=== PATIENT | female | born 1975 | race Caucasian/White ===

== ENCOUNTER 2020-01-13 10:21 | Emergency (ER) | payer BC, SELFPAY ==
[2020-01-13 10:26] VITALS: BP 126/85; PULSE 66; RESP 16; TEMP 36.6; O2SAT 97
--- NOTE | 2020-01-13 11:08 | ED.GENADULT ---
HPI - General Adult General Chief complaint: Upper Respiratory Infection Stated complaint: chest congestion/dry cough Time Seen by Provider: 01/13/20 11:08 Source: patient and RN notes reviewed Mode of arrival: ambulatory Limitations: no limitations History of Present Illness HPI narrative: 44-year-old female presents with complaints of upper respiratory infection, facial congestion and cough for the past 2 days. Motrin (last on 01/12/20) with some relief. No facial swelling. Dry cough. Some chest congestion. No change in cough with lying down. Nasal congestion and rhinorrhea. Low grade fever, highest 99.9F, orally. No chest pain or shortness of breath. No exacerbating factors. Denies chills. Denies nausea, vomiting, and abdominal pain. Tolerating po intake well. Remains active. Jaja denies being , LMP 2 weeks ago. Some parts of this dictation were generated by voice recognition software and may contain typographical and/or grammatical inaccuracies. Related Data Allergies Allergy/AdvReac Type Severity Reaction Status Date / Time clarithromycin Allergy Mild Nausea Verified 09/16/19 10:14 adhesive Allergy Unknown RASH Verified 09/16/19 10:14 Sulfa (Sulfonamide Allergy Unknown Hives Verified 09/16/19 10:14 Antibiotics) Review of Systems Review of Systems: Narrative: CONSTITUTIONAL: Complains of low-grade fever. Denies chills, sweats. EYES: Denies visual changes, redness, discharge. ENT: Complains of rhinorrhea, congestion. Denies sore throat. otalgia. CARDIOVASCULAR: Denies chest pain, palpitations, edema. RESPIRATORY: Denies dyspnea, wheezing. Complains of dry cough. GASTROINTESTINAL: Denies abdominal pain, nausea, vomiting, diarrhea. GENITOURINARY: Denies dysuria, hematuria, abnormal discharge. SKIN: Denies rash or itching. MUSCULOSKELETAL: Denies acute back pain, joint pain, or myalgia. NEUROLOGIC: Denies numbness or focal weakness. PSYCHIATRIC: Denies anxiety or depression. All systems reviewed & are unremarkable except as noted in HPI and below. [facility] Past Medical History Medical History (Updated 01/14/20 @ 00:00 by Faotu Kumar) MVP (mitral valve prolapse) Obesity, unspecified (09/29/15) Surgical History Surgical History (Updated 01/13/20 @ 11:21 by JAVID Downs) No significant past surgical history Family History Family History Mother Patient's mother is in good health Hypertension Father Patient's father is in good health Family history of cardiovascular disease Family history of malignant neoplasm of male breast Hypertension Family history of malignant neoplasm of breast in first degree relative Grandparent Acute myocardial infarction, Onset Age: 94 Family history of dementia Social History Social History (Updated 01/13/20 @ 11:21 by JAVID Downs) Smoking status: Never smoker Second hand tobacco smoke exposure: No Alcohol intake: current Substance use: never Living arrangements: with family Occupation/Education: occupation Gender identity (if verbalized by the patient): Female Comments At time of signature, agree with nurse past medical, surgical, social, and family history. There is no relevant family history pertinent to the presenting complaint. Exam Narrative: Exam Narrative: GENERAL: This is a well-nourished, well-developed patient, in no apparent distress. Talks in full sentences and ambulates with steady gait without dyspnea. HEAD: normocephalic, atraumatic. EYES: PERRL. Sclera clear/white. Vision is grossly intact. EARS: External ears normal, auditory canals clear and without drainage, TMs normal without perforation. Hearing grossly intact. NOSE: External nose normal with no obvious nasal discharge, nares with mild redness and enlarged turbinates, clear rhinorrhea. THROAT: Mucous membranes moist, posterior pharynx with PND, mild erythema, no exudate, and
== END 2020-01-13 11:24 | disposition home or self-care (01) ==
PROVIDERS: Emergency Provider Nurse Practitioner Family; PCP Internal Medicine
DX: J00 Acute nasopharyngitis [common cold] (principal); J01.90 Acute sinusitis, unspecified; I34.1 Nonrheumatic mitral (valve) prolapse; E66.9 Obesity, unspecified
CPT/HCPCS: 99213; G0463

== ENCOUNTER 2021-09-26 10:24 | Emergency (ER) | payer BC, SELFPAY ==
[2021-09-26 10:29] VITALS: BP 129/94; PULSE 82; RESP 16; TEMP 36.7; O2SAT 100
--- NOTE | 2021-09-26 10:29 | ED.SKABFB ---
HPI - Skin/Abscess/Foreign Bdy General Chief complaint: Skin/Abscess/Foreign Body Stated complaint: Rash Time Seen by Provider: 09/26/21 10:29 Source: patient and RN notes reviewed Mode of arrival: ambulatory Limitations: no limitations History of Present Illness HPI narrative: Chris is a 45-year-old female patient who ambulated into the [facility]. Patient states states she was evaluated by her primary care physician on Tuesday and was treated with valacyclovir for shingles. Patient states the rash has increased. She has a rash underneath bilateral breasts and upper middle chest and upper back on both sides. Patient denies any itching. Patient denies any pain MD complaint: rash Related Data Allergies Allergy/AdvReac Type Severity Reaction Status Date / Time Sulfa (Sulfonamide Allergy Intermediate Hives Verified 09/25/21 13:20 Antibiotics) clarithromycin AdvReac Mild Nausea Verified 09/26/21 10:29 Review of Systems Review of Systems: CONSTITUTIONAL: Denies body aches, fever, chills, or sweats. EYES: Denies visual changes, redness, or discharge. ENT: Denies rhinorrhea, congestion, sore throat, or otalgia. CARDIOVASCULAR: Denies chest pain, palpitations, or edema. RESPIRATORY: Denies cough or dyspnea. GASTROINTESTINAL: Denies abdominal pain, nausea, vomiting, or diarrhea. GENITOURINARY: Denies dysuria or hematuria. SKIN: Denies , itching, or wounds. rash under bilateral breasts, mid chest and both sides of back MUSCULOSKELETAL: Denies back pain, joint pain, or myalgia. NEUROLOGIC: Denies headache, numbness, tingling, or weakness. PSYCH: Denies depression or anxiety. All systems reviewed & are unremarkable except as noted in HPI and below [facility] Past Medical History Medical History (Updated 09/26/21 @ 10:46 by EUN Neal) MVP (mitral valve prolapse) Obesity, unspecified (09/29/15) Surgical History Surgical History No significant past surgical history Family History Family History Mother Patient's mother is in good health Hypertension Father Patient's father is in good health Family history of cardiovascular disease Family history of malignant neoplasm of male breast Hypertension Family history of malignant neoplasm of breast in first degree relative Grandparent Acute myocardial infarction, Onset Age: 94 Family history of dementia Social History Social History Second hand tobacco smoke exposure: No Alcohol intake: current Substance use: never Gender identity (if verbalized by the patient): Female Comments At time of signature, I have reviewed and agree with nursing past medical, surgical, social and family history unless otherwise noted. Please see nursing chart for further information. There is no relevant family history pertinent to the presenting complaint Exam Narrative: GENERAL: Well-appearing, well-nourished, and in no acute distress. HEAD: Normocephalic, atraumatic. EYES: EOMI. No redness or drainage. Conjunctivae normal. ENT: Mucous membranes pink and moist. Nares clear. No rhinorrhea. TMs normal bilaterally. Throat normal. Uvula midline. NECK: Normal AROM. Supple. No lymphadenopathy. CHEST: No respiratory distress. Clear to auscultation. HEART: Regular rate and rhythm. No murmur appreciated. Normal peripheral pulses. ABDOMEN: Soft, nontender, nondistended, normal active bowel sounds. MUSCULOSKELETAL: No bony tenderness. EXTREMITIES: Normal range of motion. No edema. SKIN: Warm, dry, . Capillary refill normal. Normal skin turgor. Maculopapular rash under bilateral breast, mid chest to the neck, and scattered throughout both sides of her back NEURO: No focal deficits. Alert and oriented x3. Gait steady. PSYCH: Normal affect. No signs of depression or anxiety. Course Vital Signs Vital signs:
== END 2021-09-26 10:51 | disposition home or self-care (01) ==
PROVIDERS: Emergency Provider Nurse Practitioner Family; PCP Internal Medicine
DX: L25.9 Unspecified contact dermatitis, unspecified cause (principal); I34.1 Nonrheumatic mitral (valve) prolapse; E66.9 Obesity, unspecified; Z68.37 Body mass index [BMI] 37.0-37.9, adult
CPT/HCPCS: 99213; G0463

== ENCOUNTER 2023-01-10 00:17 | Day surgery (SDC) | payer BC, SELFPAY ==
[2022-12-24 15:01] VITALS: BMI 35.5
--- NOTE | 2023-01-07 16:12 | PM.HPGS ---
History of Present Illness History of Present Illness Consent: Risks, benefits, and alternatives have been discussed and questions answered. Patient agrees to proceed with procedure. Chief complaint: family hx colon ca Narrative: Jaja Jackson is a 47 year old female referred for colon cancer screening. Her grandfather had colon cancer. Review of Systems Review of Systems: All systems reviewed & are unremarkable except as noted in HPI and below [facility] Past Medical History Medical History MVP (mitral valve prolapse) Obesity, unspecified (09/29/15) Surgical History Surgical History No significant past surgical history Family History Family History Mother Patient's mother is in good health Hypertension Father Patient's father is in good health Family history of cardiovascular disease Family history of malignant neoplasm of male breast Hypertension Family history of malignant neoplasm of breast in first degree relative Grandparent Acute myocardial infarction, Onset Age: 94 Family history of dementia Social History Social History Smoking status: Never smoker Second hand tobacco smoke exposure: No Alcohol intake: current Drinks per week: 1 Substance use: never Living arrangements: with family Occupation/Education: occupation Gender identity (if verbalized by the patient): Female Spiritual care concerns: No Meds Home Medications and Allergies Home Medications Medication Instructions Recorded Confirmed Type No Home Medications 12/24/22 12/24/22 History Allergies Allergy/AdvReac Type Severity Reaction Status Date / Time Sulfa (Sulfonamide Allergy Intermediate Hives Verified 01/10/23 06:54 Antibiotics) clarithromycin AdvReac Mild Nausea Verified 01/10/23 06:54 Exam Const: General: alert Orientation/consciousness: patient oriented x3 Resp: Auscultation: clear to auscultation bilaterally Cardio: Rhythm: regular rhythm GI: GI Palp: Yes Soft to palpation and No Tenderness to palpation present (GI) Neuro: General: patient oriented x3 Assessment and Plan Assessment and plan (1) Colon cancer screening: Code(s): Z12.11 - Encounter for screening for malignant neoplasm of colon Status: Acute
[2023-01-10 06:55] VITALS: BP 126/75; PULSE 68; RESP 18; TEMP 36.8; O2SAT 100
[2023-01-10] MEDS: LACTATED RINGERS 1,000 ML 150 ML IV CONT (07:05)
--- NOTE | 2023-01-10 07:43 | WPDANESEPPF ---
Anes - Initial Pre Proc Eval Procedure: Operation Date: 01/10/23 08:00 Proposed Procedures p Colonoscopy - Godfrey Hernandez MD Date/Time: 01/10/23 07:43 Surgeon: Godfrey Hernandez MD Pre Op Diagnosis: family hx colon ca Patient Data Age: 47 Gender: F Height: 1.7 m Weight: 104.8 kg Last Vital Signs Temp 36.8 C 01/10/23 06:55 Pulse 68 01/10/23 06:55 Resp 18 01/10/23 06:55 BP 126/75 01/10/23 06:55 Pulse Ox 100 01/10/23 06:55 O2 Del Method Room Air 01/10/23 06:55 Allergies Allergy/AdvReac Type Severity Reaction Status Date / Time Sulfa (Sulfonamide Allergy Intermediate Hives Verified 01/10/23 06:54 Antibiotics) clarithromycin AdvReac Mild Nausea Verified 01/10/23 06:54 Home Medications Medication Instructions Recorded Confirmed Type No Home Medications 12/24/22 12/24/22 History Patient hx anesthesia problems: none Family hx anesthesia problems: none Results Review: All pre-operative results and documents have been reviewed as part of the pre-operative evaluation. [facility] Past Medical History Medical History MVP (mitral valve prolapse) Obesity, unspecified (09/29/15) Surgical History Surgical History No significant past surgical history Family History Family History Mother Patient's mother is in good health Hypertension Father Patient's father is in good health Family history of cardiovascular disease Family history of malignant neoplasm of male breast Hypertension Family history of malignant neoplasm of breast in first degree relative Grandparent Acute myocardial infarction, Onset Age: 94 Family history of dementia Social History Social History Smoking status: Never smoker Second hand tobacco smoke exposure: No Alcohol intake: current Drinks per week: 1 Substance use: never Living arrangements: with family Occupation/Education: occupation Gender identity (if verbalized by the patient): Female Spiritual care concerns: No Anes - Eval Final PreProcedure Day of Procedure 01/10/23 07:43 Patient weight: obese Heart: regular rate and rhythm Lungs: clear to auscultation and normal air movement Airway: Mallampati scale class II Neurological: alert and oriented Last oral intake: >/= 8 hours ASA classification: II Emergent: no Anesthetic plan: proceed Anesthesia type and monitoring: general GIVS Results Review: All pre-operative results and documents have been reviewed as part of the pre-operative evaluation. Informed Consent: The patient's anesthetic plan and its attendant risks and benefits were discussed with the patient/family/POA. Questions were solicited and answers provided to the satisfaction of the patient/family/POA.
[2023-01-10] MEDS: SIMETHICONE ORAL SUSPENSION 20 MG/0.3 ML 30 ML BOTTLE 0.6 ML IRRIGATION (08:11)
[2023-01-10 08:20] VITALS: BP 112/70; PULSE 67; RESP 25; O2SAT 100
[2023-01-10 08:30] VITALS: BP 112/77; PULSE 63; RESP 18; O2SAT 100
[2023-01-10 08:40] VITALS: BP 113/85; PULSE 66; RESP 18; O2SAT 100
== END 2023-01-10 08:47 | disposition home or self-care (01) ==
PROVIDERS: PCP Family Medicine; Visit Provider Internal Medicine Gastroenterology
PROC: 0DJD8ZZ Inspection of Lower Intestinal Tract, Via Natural or Artificial Opening Endoscopic (ICD-10-PCS; CPT 45378; principal; 2023-01-10 08:00)
DX: Z12.11 Encounter for screening for malignant neoplasm of colon (principal); Z80.0 Family history of malignant neoplasm of digestive organs; E66.9 Obesity, unspecified; Z68.36 Body mass index [BMI] 36.0-36.9, adult
CPT/HCPCS: 45378; J2704; J7120

== ENCOUNTER 2023-06-20 08:50 | Outpatient (CLI) | payer BC, SELFPAY ==
[2023-06-20 13:08] LABS: Iron 46 ug/dL (37-170)
[2023-06-20 13:16] LABS: Alanine Aminotransferase 13 U/L (6-35); Alkaline Phosphatase 60 U/L (38-126); Anion Gap 5 mmol/L (8-16); Aspartate Amino Transferase 24 U/L (14-36); Bilirubin,Total 0.5 mg/dL (0.2-1.3); Blood Urea Nitrogen 14 mg/dL (7-17); Calcium 8.7 mg/dL (8.4-10.2); Carbon Dioxide 30 mmol/L (22-30); Chloride 104 mmol/L (98-107); Cholesterol 165 mg/dL (0-200); Estimated Glomerular Filt Rate > 60; Glucose 81 mg/dL (65-110); HDL Direct 42 mg/dL; Potassium 4.4 mmol/L (3.4-5.0); Sodium 139 mmol/L (137-145); Triglycerides 80 mg/dL (<150)
[2023-06-20 13:17] LABS: Percent Iron Saturation 11 % (20-50)
[2023-06-20 13:19] LABS: Basophils Absolute Auto 0.1 K/mm3 (0.0-0.1); Basophils Percent Auto 0.8 % (0.2-1.2); Eosinophils Absolute Auto 0.2 K/mm3 (0-0.3); Eosinophils Percent Auto 2.2 % (0-4.4); Hematocrit 40.2 % (37.0-47.0); Hemoglobin 12.3 g/dL (12.0-15.0); Immature Granulocyte Absolute 0.02 K/mm3 (0.00-0.031); Immature Granulocyte Percent A 0.3 % (0-0.5); Lymphocytes Absolute Auto 2.08 K/mm3 (0.9-3.2); Lymphocytes Percent Auto 28.4 % (18.3-44.2); Mean Corpuscular HGB Conc 30.6 g/dl (32-36); Mean Corpuscular Hemoglobin 27.3 pg (26-34); Mean Corpuscular Volume 89.1 fl (80-100); Mean Platelet Volume 12.1 fl (7.4-10.4); Monocytes Absolute Auto 0.4 K/mm3 (0.1-0.6); Monocytes Percent Auto 5.9 % (2.6-8.5); Neutrophils Absolute Auto 4.6 K/mm3 (1.3-6.7); Neutrophils Percent Auto 62.4 % (45.5-73.1); Platelet Count Result 220 k/mm3 (150-375); Red Blood Count 4.51 M/mm3 (4.2-5.4); Red Cell Distribution Width 15.1 % (11.5-14.5); White Blood Count 7.3 K/mm3 (4.5-10.0)
[2023-06-20 13:27] LABS: LDL Cholesterol Direct 101 mg/dL
[2023-06-20 13:45] LABS: Ferritin 6.34 ng/mL (6.24-137)
[2023-06-20 15:27] LABS: Folic Acid > 20.0 ng/mL (2.76->20)
[2023-06-20 19:45] LABS: Vitamin D 25 Hydroxy 19.1 ng/mL
== END 2023-06-20 08:51 | disposition home or self-care (01) ==
LOC: ANHGOSHLAB 08:52
PROVIDERS: PCP Family Medicine; Visit Provider Family Medicine
DX: Z00.00 Encounter for general adult medical examination without abnormal findings (principal); R53.83 Other fatigue; E55.9 Vitamin D deficiency, unspecified; D50.9 Iron deficiency anemia, unspecified; Z13.220 Encounter for screening for lipoid disorders; Z13.29 Encounter for screening for other suspected endocrine disorder; Z13.228 Encounter for screening for other metabolic disorders
CPT/HCPCS: 36415; 80053; 80061; 82306; 82607; 82728; 82746; 83540; 83550; 84443; 85025

== ENCOUNTER 2023-08-03 08:41 | Outpatient (CLI) | payer BC, SELFPAY ==
--- NOTE | 2023-08-09 20:44 | WPDHOMESLEEP ---
Sleep Study - Home Unattended Date of Study: 08/03/23 Ordering Provider: Moose Estrella DO Interpreting Provider: Caitlin Gonsalez DO Home Sleep Study Type: Apnea Link Air Height: 1.7 m Weight: 102.058 kg Body Mass Index: 35.2 Neck Circumference (inches): 14.5 Glidden: 3 Reason for Sleep Study Snoring Sleep History The patient is a 47-year-old female that had a sleep study ordered by her primary care physician for evaluation of sleep apnea. The patient denies awakening from sleep short of breath. She rarely awakens at night with heartburn, belching or cough. She occasionally snores and is occasionally loud enough others complain. She occasionally has trouble sleeping when she has a cold. She rarely wakes up gasping for air throughout the night. She occasionally has breathing problems at night observed by herself or others. She denies sweating excessively at night. She occasionally has heart palpitations or irregular heartbeats during the night. She rarely falls asleep during the day but never while driving. She denies sleep paralysis and cataplexy. She denies having trouble at school or work due to sleepiness. She occasionally experiences vivid dreamlike scenes upon awakening or falling asleep. She denies feeling afraid of going to sleep. She rarely has nightmares. She frequently remembers her dreams. She frequently has thoughts racing through her mind. She rarely feels sad or depressed. She occasionally has anxiety. She occasionally has muscular tension. She occasionally notices parts of her body jerk. She occasionally kicks during the night. She rarely has crawling and aching feelings in her legs but denies having leg pain during the night. She occasionally grinds her teeth during sleep but never awakens with morning jaw pain. She is rarely bothered by pain during the day and rarely awakened by pain during the night. She occasionally wakes up feeling stiff in the morning. She occasionally wakes up with sore or achy muscles. She occasionally wakes up with pain in the neck, spine or other joints. She goes to bed at 10:00 p.m. on weekdays and 11:00 p.m. on the weekends. It takes her 10 minutes to fall asleep. She wakes up 1-2 times throughout the night to urinate but the amount of time it takes to fall back asleep is variable. She wakes up at 6:00 a.m. on weekdays and at 7:30 a.m. on weekends. She typically gets 7 hours of sleep per night. She will stay in bed for 5 minutes after waking up in the morning. She currently lives with her . She denies consuming any caffeinated beverages within 2 hours of bedtime. She denies engaging in physical exercise before bedtime. She will occasionally read and watch television before falling asleep. She denies taking naps in the afternoon or the evening. She consumes 1 caffeinated beverage per day. She consumes 1 alcoholic beverage per week. She denies tobacco recreational drug use. [facility] Past Medical History Medical History (Updated 08/09/23 @ 21:03 by Caitlin Gonsalze DO) MVP (mitral valve prolapse) Obesity, unspecified (09/29/15) Surgical History Surgical History No significant past surgical history Family History Family History Mother Patient's mother is in good health Hypertension Father Patient's father is in good health Family history of cardiovascular disease Family history of malignant neoplasm of male breast Hypertension Family history of malignant neoplasm of breast in first degree relative Grandparent Acute myocardial infarction, Onset Age: 94 Family history of dementia Social History Social History Smoking status: Never smoker Second hand tobacco smoke exposure: No Alcohol intake: current Drinks per week: 1 Substance use: never Lack of Transpor
[2023-08-09 20:48] VITALS: BMI 35.2
== END 2023-08-04 15:57 | disposition home or self-care (01) ==
LOC: ANHCSM 08:44
PROVIDERS: PCP Family Medicine; Visit Provider Family Medicine
DX: G47.30 Sleep apnea, unspecified (principal); G47.10 Hypersomnia, unspecified; R53.83 Other fatigue; E66.9 Obesity, unspecified; Z68.35 Body mass index [BMI] 35.0-35.9, adult
CPT/HCPCS: 95806

== ENCOUNTER 2023-08-16 13:20 | Outpatient (CLI) | payer BC, SELFPAY ==
--- NOTE | 2023-08-16 12:37 | ECHO_ITS ---
Patient Info Name: Jaja Jackson Age: 47 years : 1975 Gender: Female Ht: 67 in Wt: 225 lbs BSA: 2.24 m2 HR: 62 bpm BP: 118 / 84 mmHg Technical Quality: Fair Exam Date: 08/16/2023 2:02 PM Exam Location: [facility] Pulmonary Patient Status: Outpatient Admit Date: 08/16/2023 Staff Ordering Physician: Lauro Miranda DO [employer]: Leigh Hernandez RDCS Attending Provider: Lauro Miranda DO Referring Physician: Ruben ALONSO; Exam Type: CA echo doppler color flow Study Info Indications I34.1 - Nonrheumatic mitral (valve) prolapse Complete two-dimensional, color flow and Doppler transthoracic echocardiogram is performed. Summary 1. Complete two-dimensional, color flow and Doppler transthoracic echocardiogram is performed. 2. Left ventricular chamber dimension is normal. 3. Left ventricular systolic function is normal, estimated at 60-65%. 4. The left ventricular diastolic function is normal. 5. E/e' 7 is not elevated. 6. Left atrial chamber dimension is mildly enlarged. 7. No pulmonary hypertension, estimated pulmonary arterial systolic pressure is 25 mmHg. Left Ventricle E/e' 7 is not elevated. Left ventricular chamber dimension is normal. Left ventricular systolic function is normal, estimated at 60-65%. The left ventricular diastolic function is normal. Right Ventricle Right ventricular chamber dimension is normal. Right ventricular systolic function is normal. Left Atria Left atrial chamber dimension is mildly enlarged. Right Atria Right atrial chamber dimension is normal. Aortic Valve The aortic valve is trileaflet. There is no aortic valve stenosis. There is no aortic valve regurgitation. Pulmonic Valve There is no pulmonic regurgitation. Mitral Valve There is no mitral valve stenosis. There is no mitral valve regurgitation. Tricuspid Valve There is no tricuspid valve regurgitation. No pulmonary hypertension, estimated pulmonary arterial systolic pressure is 25 mmHg. Pericardium/Pleural There is no pericardial effusion. Inferior Vena Cava Normal inferior vena cava with >50% collapse upon inspiration consistent with normal right atrial pressure, 5 mmHg. Aorta The aortic root size at the sinus of Valsalva is normal. Left Ventricular Outflow Tract Name Value Normal LVOT 2D LVOT Diameter 2.0 cm LVOT Doppler LVOT Peak Gradient 5 mmHg LVOT Mean Gradient 3 mmHg LVOT VTI 24 cm LVOT VTI/AV VTI Ratio 0.8 LVOT Stroke Volume 72 ml LVOT CO 4.1 l/min LVOT CI 1.8 l/min/m2 Pulmonic Valve Name Value Normal RVOT Doppler RVOT Peak Gradient 2 mmHg PV Doppler PV Peak Gradient 3 mmHg Mitral Valve -------
== END 2023-08-16 13:21 | disposition home or self-care (01) ==
PROVIDERS: PCP Family Medicine; Visit Provider Internal Medicine Cardiovascular Disease
DX: I34.1 Nonrheumatic mitral (valve) prolapse (principal); I51.7 Cardiomegaly
CPT/HCPCS: 93306

== ENCOUNTER 2024-10-19 08:13 | Outpatient (CLI) | payer BC, SELFPAY ==
[2024-10-19 13:51] LABS: Basophils Percent Auto 0.6 % (0.2-1.2); Eosinophils Absolute Auto 0.2 K/mm3 (0-0.3); Eosinophils Percent Auto 2.4 % (0-4.4); Hemoglobin 13.8 g/dL (12.0-15.0); Immature Granulocyte Absolute 0.02 K/mm3 (0.00-0.031); Immature Granulocyte Percent A 0.3 % (0-0.5); Lymphocytes Absolute Auto 2.23 K/mm3 (0.9-3.2); Lymphocytes Percent Auto 30.9 % (18.3-44.2); Mean Corpuscular HGB Conc 32.1 g/dl (32-36); Mean Corpuscular Hemoglobin 29.6 pg (26-34); Mean Corpuscular Volume 92.3 fl (80-100); Mean Platelet Volume 12.1 fl (7.4-10.4); Monocytes Absolute Auto 0.5 K/mm3 (0.1-0.6); Monocytes Percent Auto 6.2 % (2.6-8.5); Neutrophils Absolute Auto 4.3 K/mm3 (1.3-6.7); Neutrophils Percent Auto 59.6 % (45.5-73.1); Platelet Count Result 210 k/mm3 (150-375); Red Blood Count 4.66 M/mm3 (4.2-5.4); White Blood Count 7.2 K/mm3 (4.5-10.0)
[2024-10-19 13:53] LABS: Iron 90 ug/dL (37-170)
[2024-10-19 13:57] LABS: Alanine Aminotransferase 12 U/L (6-35); Albumin Level 4.1 g/dL (3.5-5.1); Alkaline Phosphatase 64 U/L (38-126); Anion Gap 3 mmol/L (4-12); Aspartate Amino Transferase 66 U/L (14-36); Bilirubin,Total 0.7 mg/dL (0.2-1.3); Blood Urea Nitrogen 15 mg/dL (7-17); Calcium 9.2 mg/dL (8.4-10.2); Carbon Dioxide 29 mmol/L (22-30); Chloride 106 mmol/L (98-107); Cholesterol 172 mg/dL (0-200); Estimated Glomerular Filt Rate > 60; Glucose 72 mg/dL (65-110); HDL Direct 44 mg/dL; Potassium 4.3 mmol/L (3.4-5.0); Sodium 138 mmol/L (137-145); Triglycerides 66 mg/dL (<150)
[2024-10-19 14:03] LABS: Percent Iron Saturation 22 % (20-50)
[2024-10-19 14:08] LABS: LDL Cholesterol Direct 92 mg/dL
== END 2024-10-19 08:14 | disposition home or self-care (01) ==
PROVIDERS: PCP Family Medicine; Visit Provider Family Medicine
DX: Z00.00 Encounter for general adult medical examination without abnormal findings (principal); D50.9 Iron deficiency anemia, unspecified; R53.83 Other fatigue; Z13.220 Encounter for screening for lipoid disorders; Z13.228 Encounter for screening for other metabolic disorders
CPT/HCPCS: 36415; 80053; 80061; 82728; 83540; 83550; 85025